=== PATIENT | male | born 1980 | race Hispanic/Latino ===

== ENCOUNTER 2018-07-06 10:59 | Inpatient (IN) | payer OTHER ==
[2018-07-06] VITALS (18 sets, daily range): BP systolic 108–150; BP diastolic 69–99
[~2018-07-06] VITALS: Ht 167.6 cm; Wt 93.6 kg
[2018-07-06] MEDS ORDERED: METF-444 PO (14:04)
[2018-07-06] MEDS ORDERED: IOHEXOL 350 MG/ML 100ML INFUS..BTL IV ONE (14:33)
[2018-07-06] MEDS ORDERED: IOHEXOL-350 50ML VIAL IV ONE (14:33)
[2018-07-06] MEDS ORDERED: LIDOCAINE HCL 2% 20ML ONE (14:33)
[2018-07-06] MEDS ORDERED: HEPARIN SODIUM 1000UNIT/ML 10ML VIAL ONE (14:34)
[2018-07-06] MEDS ORDERED: ATROPINE SULFATE 0.1 MG/ML 10 ML SYG IVP ONE ×2 (15:40→22:20)
[2018-07-06] MEDS ORDERED: CLOPIDOGREL BISULFATE 300 MG TAB ONE (15:52)
[2018-07-06] MEDS ORDERED: PRASUGREL HCL 10 MG TABLET ONE (15:58)
[2018-07-06] MEDS ORDERED: ASPIRIN 81MG TAB.CHEW ONE (15:58)
[2018-07-06] MEDS ORDERED: DEXTROSE 50%-WATER 50 ML DISP.SYRIN IV PRN (16:15)
[2018-07-06] MEDS ORDERED: TEMAZEPAM 30 MG CAP PO PRN (16:15)
[2018-07-06] MEDS ORDERED: ONDANSETRON HCL 4 MG/2 ML VIAL IVP SCH (16:15)
[2018-07-06] MEDS ORDERED: MORPHINE SULFATE 5 MG/ML VIAL IVP SCH (16:15)
[2018-07-06] MEDS ORDERED: ONDANSETRON HCL 4 MG/2 ML VIAL IVP PRN (16:15)
[2018-07-06] MEDS ORDERED: ACETAMINOPHEN-CODEINE 300/30MG TAB PO PRN ×2 (16:15)
[2018-07-06] MEDS: INSULIN HUMULIN R 100 UNIT/ML 3ML SQ SCH ×2 (16:30→21:00)
[2018-07-06] MEDS ORDERED: MORPHINE SULFATE 2 MG/ML 1ML SYG IM PRN (17:15)
[2018-07-06] MEDS ORDERED: HYDRALAZINE HCL 20 MG/ML VIAL IV PRN (17:15)
[2018-07-06 20:13] LABS: HEMOGLOBIN A1C 10.6 % (4.0-6.0)
[2018-07-06] MEDS ORDERED: ATORVASTATIN CALCIUM 10 MG TABLET PO SCH (21:00)
[2018-07-06] MEDS ORDERED: MORPHINE SULFATE 4 MG/1ML SYG IM PRN (21:57)
[2018-07-06] MEDS: METOPROLOL TARTRATE 50 MG TAB PO SCH (23:12)
[2018-07-06] MEDS: INSULIN GLARGINE 100 UNITS/ML 10 ML VIAL SQ SCH (23:14)
[2018-07-07] VITALS (8 sets, daily range): BP systolic 76–125; BP diastolic 44–81
[2018-07-07 03:51] LABS: MEAN CORPUSCULAR HEMOGLOBIN 28.6 pg (27.0-33.0); MEAN CORPUSCULAR HGB CONC 34.3 g/dL (32.0-36.0); MEAN CORPUSCULAR VOLUME 83.3 fL (79-99); PLATELET COUNT (AUTO) 209 K/uL (130-400); RED BLOOD CELL COUNT(AUTO) 5.17 MIL/uL (4.50-6.20); RED CELL DISTRIBUTION WIDTH 13.4 % (11.0-15.5)
[2018-07-07 04:08] LABS: CREATININE 1.1 mg/dL (0.5-1.5); POTASSIUM 3.6 mmol/L (3.5-5.1)
[2018-07-07] MEDS: METOPROLOL TARTRATE 50 MG TAB PO SCH (08:20)
[2018-07-07] MEDS: INSULIN GLARGINE 100 UNITS/ML 10 ML VIAL SQ SCH (08:23)
[2018-07-07] MEDS: INSULIN HUMULIN R 100 UNIT/ML 3ML SQ SCH ×2 (08:24→11:45)
[2018-07-07] MEDS ORDERED: CLOPIDOGREL BISULFATE 75 MG TAB PO SCH (09:00)
[2018-07-07] MEDS ORDERED: ASPIRIN 81MG TAB.CHEW PO SCH (09:00)
[2018-07-07] MEDS ORDERED: METO50 PO (11:53)
[2018-07-07] MEDS ORDERED: ASPI-1005 PO (11:53)
[2018-07-07] MEDS ORDERED: CLOP75TA14 PO (11:53)
[2018-07-07] MEDS ORDERED: ATOR10 PO (11:53)
== END 2018-07-07 14:40 | disposition home or self-care (01) | DRG 247 ==
LOC: 2AH 13:51
PROVIDERS: ADMIT Internal Medicine; ATTEND Internal Medicine
PROC: 027034Z Dilation of Coronary Artery, One Artery with Drug-eluting Intraluminal Device, Percutaneous Approach (ICD-10-PCS; principal; 2018-07-06)
PROC: 4A023N7 Measurement of Cardiac Sampling and Pressure, Left Heart, Percutaneous Approach (ICD-10-PCS; 2018-07-06)
PROC: B2111ZZ Fluoroscopy of Multiple Coronary Arteries using Low Osmolar Contrast (ICD-10-PCS; 2018-07-06)
PROC: B2151ZZ Fluoroscopy of Left Heart using Low Osmolar Contrast (ICD-10-PCS; 2018-07-06)
DX: I21.4 Non-ST elevation (NSTEMI) myocardial infarction (principal); I24.9 Acute ischemic heart disease, unspecified; I25.10 Atherosclerotic heart disease of native coronary artery without angina pectoris; I10 Essential (primary) hypertension; E66.9 Obesity, unspecified; E11.65 Type 2 diabetes mellitus with hyperglycemia; Z68.33 Body mass index [BMI] 33.0-33.9, adult; I25.2 Old myocardial infarction; Z83.3 Family history of diabetes mellitus; Z82.49 Family history of ischemic heart disease and other diseases of the circulatory system
CPT/HCPCS: 36415; 80048; 82948; 83036; 85027; 85730; 93005; 93458; C1725; C1769; C1887; C1894; C9607; G0378; J0461; J1644; J1815; J2270; J2405; J3490; Q9967